=== PATIENT | male | born 1945 | race Caucasian/White ===

== ENCOUNTER 2017-11-01 05:21 | Inpatient (IN) | payer OTHER ==
[2017-10-30 12:46] LABS: ABG BASE EXCESS 3.3 mmol/L (-2.0-3.0); ABG HCO3 28.8 mmol/L (22.0-26.0); ABG OXYGEN SATURATION 91.9 % (95-98); ABG PCO2 (T) 46.9 mmHg (35.0-48.0); ABG PH (T) 7.406 (7.350-7.450); ABG PO2 (T) 62.6 mmHg (83-108); ALLEN'S TEST Positive; FMetHb 0.1 % (0.3-1.12); TOTAL HEMOGLOBIN 15.8 G/dl (14.0-18.0)
[2017-10-30 13:53] LABS: CLARITY,URINE Clear (Clear); COLOR,URINE Yellow (Yellow); GLUCOSE, URINE Negative (Neg); KETONES,URINE Negative (Neg); LEUKOCYTE ESTERASE ,URINE Negative (Neg); NITRITES, URINE Negative (Neg); OCCULT BLOOD,URINE Negative (Neg); PROTEIN,URINE Negative (Neg)
[2017-10-30 13:55] LABS: UA COLLECTION TYPE NON-SPECIFIED
[2017-10-30 15:18] LABS: BASOPHILS % (AUTO) 0.7 % (0-1); EOSINOPHILS # (AUTO) 0.1 X10'3 (0-0.9); EOSINOPHILS % (AUTO) 2.1 % (0-6); LYMPHOCYTES # (AUTO) 1.9 X10'3 (1.1-4.8); LYMPHOCYTES % (AUTO) 27.1 % (21-51); MEAN CORPUSCULAR HEMOGLOBIN 32.2 PG (27.0-31.0); MEAN CORPUSCULAR HGB CONC 34.2 % (33.0-36.5); MEAN CORPUSCULAR VOLUME 94.1 FL (78-98); MEAN PLATELET VOLUME 8.3 FL (7.4-10.4); MONOCYTES # (AUTO) 0.5 X10'3 (0-0.9); MONOCYTES % (AUTO) 7.8 % (2-12); NEUTROPHILS # (AUTO) 4.5 X10'3 (1.8-7.7); NEUTROPHILS % (AUTO) 62.3 % (42-75); PRE OP HEMATOCRIT 43.5 % (42.0-52.0); PRE OP HEMOGLOBIN 14.9 g/dL (14.0-17.9); PRE OP PLATELET COUNT 235 X10'3 (140-440); RED BLOOD COUNT 4.63 X10'6 (4.70-6.10); RED CELL DISTRIBUTION WIDTH 13.5 % (11.5-14.5)
[2017-10-30 15:21] LABS: PRE OP INR 1.1 INR; PRE OP PROTIME 11.2 SECONDS (9.0-12.0)
[2017-10-30 15:40] LABS: ALBUMIN 3.9 G/DL (3.4-5.0); ALBUMIN/GLOBULIN RATIO 1.4 (1.1-1.5); ALKALINE PHOSPHATASE 68 IU/L (46-116); BLOOD UREA NITROGEN 17 MG/DL (7-18); CALCIUM 9.1 MG/DL (8.5-10.1); CHLORIDE 104 MMOL/L (99-107); CREATININE 0.63 MG/DL (0.60-1.10); PRE OP ALT 32 U/L (30-65); PRE OP ANION GAP 7 (8-16); PRE OP AST 25 U/L (10-37); PRE OP BILIRUB, TOTAL 0.4 MG/DL (0.0-1.0); PRE OP GLUCOSE 74 MG/DL (70-104); PRE OP POTASSIUM 4.2 MMOL/L (3.4-5.1); PRE OP SODIUM 141 MMOL/L (135-145); TOTAL CARBON DIOXIDE 29.9 MMOL/L (24-32); TOTAL PROTEIN 6.7 G/DL (6.4-8.2); eGFR > 90 ML/MIN
[2017-10-30 15:57] LABS: HEMOGLOBIN A1C 5.8 % (4.5-6.2)
[2017-11-01] VITALS (18 sets, daily range): BP systolic 113–170; BP diastolic 50–86
[~2017-11-01] VITALS: Ht 182.9 cm; Wt 57.3 kg
[~2017-11-01 05:21] MED LIST: ASPI81TA52 PO; ATEN-169 PO; DOCU-261 PO; HYDR-565 PO; MULT-1085 PO; OMEG1CAP PO; OMEP40CA37 PO; ROSU20TA PO; TIOT4MIS3 PO; albuterol 2.5 MG/3 ML nebule NEB ONE; dextrose 50%-water 50ml dispensing syringe IV PRN; insulin Lispro (HumaLOG) vial - multi-dose SQ PRN; ringers solution, lacted 1,000 ML IV SCH
[2017-11-01] MEDS ORDERED: ceFAZolin inj. 2,000 MG in dextrose 5%-water 100 ML IV ONE (05:30)
[2017-11-01] MEDS ORDERED: VANCOMYCIN INJ 1000 MG in NORMAL SALINE 250ml IV.SOLN IV ONE (05:30)
[2017-11-01] MEDS ORDERED: DOCUMENT DATE & TIME OF BETA-BLOCKER PO ONE (05:30)
[2017-11-01] MEDS ORDERED: metoprolol tartrate 12.5mg (1/2 tablet) PO ONE (05:30)
[2017-11-01] MEDS ORDERED: famotidine 20mg tablet PO ONE (05:30)
[2017-11-01] MEDS ORDERED: albuterol 2.5 MG/3 ML nebule NEB ONE (05:30)
[2017-11-01] MEDS ORDERED: LIDOcaine 1% (10mg/ml) 2ml vial ONE (06:16)
[2017-11-01] MEDS ORDERED: heparin 10,000 units/1 ML INJ IR ONE (06:30)
[2017-11-01] MEDS ORDERED: LORazepam 2 mg/ml vial IV ONE (06:35)
[2017-11-01] MEDS ORDERED: ceFAZolin 2gm in dextrose, iso 100 ML IV ONE (06:35)
[2017-11-01] MEDS: mupirocin 2% ointment 22GM NS SCH ×3 (06:47→20:12)
[2017-11-01] MEDS: insulin regular, human inj. 100 UNITS in normal saline 100ml IV IV SCH ×6 (06:48→15:23)
[2017-11-01] MEDS ORDERED: MIDAZolam 1mg/ml 10ml vial ONE (07:36)
[2017-11-01] MEDS ORDERED: SUFENTANIL CITRATE 50 MCG/ML 2ml ampule IV ONE (07:37)
[2017-11-01] MEDS ORDERED: propofol inj 20 ML IV ONE (07:40)
[2017-11-01] MEDS ORDERED: protamine sulf. 10mg/ml inj. IV ONE (07:41)
[2017-11-01] MEDS ORDERED: sevoflurane 250ml liquid IH ONE (07:41)
[2017-11-01] MEDS ORDERED: DOPamine/D5W 400mg/250ml bag IV ONE (07:41)
[2017-11-01] MEDS ORDERED: heparin 10,000 units/1 ML INJ ONE ×2 (07:41→10:00)
[2017-11-01] MEDS ORDERED: albumin (Human) 5% 250 ML IV solution IV ONE (07:41)
[2017-11-01 08:31] LABS: ABG BASE EXCESS 1.9 mmol/L (-2.0-3.0); ABG HCO3 28.4 mmol/L (22.0-26.0); ABG OXYGEN SATURATION 99.4 % (95-98); ABG PCO2 52.1 mmHg (35.0-45.0); ABG PH 7.354 (7.350-7.450); ABG PO2 400.7 mmHg (60.0-100.0); CL (ABG) 105 mmol/L (99-107); FCOHb 2.7 % (0.5-1.5); FMetHb 0.5 % (0.3-1.12); FO2Hb 96.2 % (94-100); GLUCOSE (ABG) 125 mg/dl (70-105); IONIZED CA (ABG) 1.18 mmol/L (1.03-1.32); K (ABG) 4.1 mmol/L (3.3-5.1); NA (ABG) 136 mmol/L (135-145); TOTAL HEMOGLOBIN 13.7 G/dl (14.0-18.0)
[2017-11-01] MEDS ORDERED: tranexamic acid inj. 1,000 MG in normal saline 100ml IV soln 90 ML IV ONE (08:35)
[2017-11-01 09:25] LABS: ABG BASE EXCESS 2.9 mmol/L (-2.0-3.0); ABG HCO3 28.3 mmol/L (22.0-26.0); ABG OXYGEN SATURATION 98.9 % (95-98); ABG PCO2 47.1 mmHg (35.0-45.0); ABG PH 7.397 (7.350-7.450); ABG PO2 358.8 mmHg (60.0-100.0); CL (ABG) 105 mmol/L (99-107); FCOHb 1.8 % (0.5-1.5); FMetHb 0.7 % (0.3-1.12); FO2Hb 96.4 % (94-100); GLUCOSE (ABG) 99 mg/dl (70-105); IONIZED CA (ABG) 1.04 mmol/L (1.03-1.32); K (ABG) 5.4 mmol/L (3.3-5.1); NA (ABG) 136 mmol/L (135-145); TOTAL HEMOGLOBIN 11.3 G/dl (14.0-18.0)
[2017-11-01 09:40] LABS: ABG BASE EXCESS VENOUS 3.9 mmol/L; ABG HCO3 VENOUS 29.1 mmol/L; ABG PCO2 VENOUS 46.4 mmHg; ABG PO2 VENOUS 47.8 mmHg; CL (ABG) 105 mmol/L (99-107); FCOHb VENOUS 2.3 %; FHHb VENOUS 12.6 %; FMetHb VENOUS 0.8 %; FO2Hb VENOUS 84.3 %; GLUCOSE (ABG) 97 mg/dl (70-105); IONIZED CA (ABG) 1.06 mmol/L (1.03-1.32); K (ABG) 5.1 mmol/L (3.3-5.1); NA (ABG) 136 mmol/L (135-145); TOTAL HEMOGLOBIN 11.3 G/dl (14.0-18.0)
[2017-11-01] MEDS ORDERED: potassium Cl 2 mEq/ml inj IV ONE (10:00)
[2017-11-01] MEDS ORDERED: LIDOcaine 2% (20 mg/ml) 5ml cardiac syringe ONE (10:00)
[2017-11-01] MEDS ORDERED: phenylephrine 10mg/ml inj IV ONE (10:00)
[2017-11-01] MEDS ORDERED: calcium chloride 100 MG/1 ML inj IV ONE (10:00)
[2017-11-01] MEDS ORDERED: sodium bicarbonate (8.4%) 1 mEq/ml syringe ONE (10:00)
[2017-11-01] MEDS ORDERED: MAGNESIUM SULFATE 4 MEQ/ML (1gm/2ml) injection ONE (10:00)
[2017-11-01] MEDS ORDERED: methylPREDNISolone sod. succ. 500mg inj ONE (10:00)
[2017-11-01] MEDS ORDERED: heparin 1,000 units/ml 10ml inj ONE (10:00)
[2017-11-01] MEDS ORDERED: albumin (human) 25% 100 ML IV solution IV ONE (10:00)
[2017-11-01 10:05] LABS: ABG OXYGEN SATURATION 98.8 % (95-98); ABG PCO2 35.4 mmHg (35.0-45.0); ABG PH 7.516 (7.350-7.450); ABG PO2 344.5 mmHg (60.0-100.0); CL (ABG) 106 mmol/L (99-107); FCOHb 1.7 % (0.5-1.5); FMetHb 0.8 % (0.3-1.12); FO2Hb 96.3 % (94-100); GLUCOSE (ABG) 82 mg/dl (70-105); IONIZED CA (ABG) 1.51 mmol/L (1.03-1.32); K (ABG) 4.9 mmol/L (3.3-5.1); NA (ABG) 135 mmol/L (135-145); TOTAL HEMOGLOBIN 10.8 G/dl (14.0-18.0)
[2017-11-01 10:25] LABS: ABG BASE EXCESS VENOUS 3.4 mmol/L; ABG PCO2 VENOUS 48.3 mmHg; ABG PO2 VENOUS 41.9 mmHg; CL (ABG) 105 mmol/L (99-107); FCOHb VENOUS 2.1 %; FHHb VENOUS 17.7 %; FMetHb VENOUS 0.7 %; FO2Hb VENOUS 79.5 %; GLUCOSE (ABG) 91 mg/dl (70-105); IONIZED CA (ABG) 1.24 mmol/L (1.03-1.32); K (ABG) 4.6 mmol/L (3.3-5.1); NA (ABG) 138 mmol/L (135-145); TOTAL HEMOGLOBIN 11.4 G/dl (14.0-18.0)
[2017-11-01] MEDS: ipratropium/albuterol 3ml nebule IH SCH ×3 (11:00→23:27)
[2017-11-01] MEDS ORDERED: sodium chloride 0.45% 1,000 ML IV SCH (11:07)
[2017-11-01] MEDS ORDERED: niCARDipine/sod cl 20mg/200ml 200 ML IV PRN (11:07)
[2017-11-01] MEDS ORDERED: DOPamine 400mg/D5W 250ml 250 ML IV PRN (11:07)
[2017-11-01] MEDS ORDERED: nitroGLYCERIN-Tridil 50MG/D5W 250 ML IV PRN (11:07)
[2017-11-01] MEDS ORDERED: metoclopramide 5 mg/ml inj IV PRN (11:10)
[2017-11-01] MEDS ORDERED: magnesium 4gm in 100ml NS 100 ML IV PRN (11:10)
[2017-11-01] MEDS ORDERED: sodium phosphate inj. 30 MMOL in dextrose 5%-water 250 ML IV PRN (11:10)
[2017-11-01] MEDS ORDERED: acetaminophen 325mg tablet PO PRN (11:10)
[2017-11-01] MEDS ORDERED: normal saline 250ml IV soln 250 ML IV PRN (11:10)
[2017-11-01] MEDS ORDERED: dextrose 50%-water 50ml dispensing syringe IV PRN (11:10)
[2017-11-01] MEDS ORDERED: ondansetron/PF 4mg/2ml inj IV PRN (11:10)
[2017-11-01] MEDS ORDERED: magnesium hydroxide 30ml (MOM) UD suspension PO PRN (11:10)
[2017-11-01] MEDS ORDERED: HYDROcodone/acetaminophen 10/325mg tab PO PRN (11:10)
[2017-11-01] MEDS ORDERED: Neutra Phos packet PO PRN (11:10)
[2017-11-01] MEDS ORDERED: albumin (Human) 5% 250ml 250 ML IV PRN (11:10)
[2017-11-01] MEDS ORDERED: potassium Cl 20mEq/100mL bag 100 ML IV PRN ×2 (11:10)
[2017-11-01] MEDS ORDERED: sodium phosphate inj. 15 MMOL in dextrose 5%-water 150 ML IV PRN (11:10)
[2017-11-01] MEDS: insulin regular, human inj. 100 UNITS in normal saline 100ml IV soln 100 ML IV SCH ×2 (11:10)
[2017-11-01] MEDS ORDERED: rocuronium 10mg/ml inj IV ONE ×3 (11:11)
[2017-11-01 11:26] LABS: ACTIVATED CLOTTING TIME 147 SEC (101-148)
[2017-11-01 11:26] LABS: ACT @ 1.70 U 283 SEC (193-297); ACT @ 2.84 U 458 SEC (260-420); BASELINE ACT 145 SEC (101-148); PATIENT WEIGHT 64.0k KG
[2017-11-01 11:30] LABS: ABG BASE EXCESS 1.6 mmol/L (-2.0-3.0); ABG HCO3 26.7 mmol/L (22.0-26.0); ABG OXYGEN SATURATION 99.3 % (95-98); ABG PCO2 (T) 41.5 mmHg (35.0-48.0); ABG PH (T) 7.422 (7.350-7.450); ABG PO2 (T) 314.4 mmHg (83-108); FCOHb 1.9 % (0.5-1.5); FLOW 40 L/min; FMetHb 0.3 % (0.3-1.12); FO2Hb 97.1 % (94-100); MINUTE VOLUME 8 L/min; PATIENT TEMPERATURE 35.8; PEEP 5 cm H2O; RESPIRATORY RATE 14 b/min; RESPIRATORY RATE (OBSERVED) 14 b/min; TIDAL VOLUME 500 mL; TOTAL HEMOGLOBIN 13.5 G/dl (14.0-18.0)
[2017-11-01 11:47] LABS: BASOPHILS % (AUTO) 0.2 % (0-1); EOSINOPHILS # (AUTO) 0.3 X10'3 (0-0.9); EOSINOPHILS % (AUTO) 2.6 % (0-6); HEMATOCRIT 38.4 % (42.0-52.0); HEMOGLOBIN 12.7 g/dl (14.0-17.9); LYMPHOCYTES # (AUTO) 0.8 X10'3 (1.1-4.8); LYMPHOCYTES % (AUTO) 6.7 % (21-51); MEAN CORPUSCULAR HEMOGLOBIN 31.9 PG (27.0-31.0); MEAN CORPUSCULAR HGB CONC 33.1 % (33.0-36.5); MEAN CORPUSCULAR VOLUME 96.3 FL (78-98); MEAN PLATELET VOLUME 7.6 FL (7.4-10.4); MONOCYTES # (AUTO) 0.4 X10'3 (0-0.9); NEUTROPHILS # (AUTO) 10.2 X10'3 (1.8-7.7); NEUTROPHILS % (AUTO) 87.5 % (42-75); PLATELET COUNT 142 X10'3 (140-440); RED BLOOD COUNT 3.98 X10'6 (4.70-6.10); RED CELL DISTRIBUTION WIDTH 14.6 % (11.5-14.5); WHITE BLOOD COUNT 11.7 X10'3 (4.5-11.0)
[2017-11-01 11:58] LABS: INR 1.3 INR; PARTIAL THROMBOPLASTIN TIME 32 SECONDS (22-32); PROTHROMBIN TIME 13.1 SECONDS (9.0-12.0)
[2017-11-01 12:04] LABS: ALANINE AMINOTRANSFERASE 17 U/L (12-78); ALBUMIN 3.2 G/DL (3.4-5.0); ALKALINE PHOSPHATASE 45 IU/L (46-116); ANION GAP 4 (8-16); ASPARTATE AMINO TRANSFERASE 26 U/L (10-37); BILIRUBIN,TOTAL 0.5 MG/DL (0.1-1.0); BLOOD UREA NITROGEN 11 MG/DL (7-18); BUN/CREATININE RATIO 18.3 (5.4-32.0); CALCIUM 9.8 MG/DL (8.5-10.1); CHLORIDE 110 MMOL/L (99-107); GLUCOSE 110 MG/DL (70-104); MAGNESIUM 2.2 MG/DL (1.5-2.4); PHOSPHORUS 2.5 MG/DL (2.3-4.5); POTASSIUM 4.3 MMOL/L (3.5-5.1); SODIUM 142 MMOL/L (135-145); TOTAL CARBON DIOXIDE 28.1 MMOL/L (24-32); TOTAL PROTEIN 4.8 G/DL (6.4-8.2); eGFR > 90 ML/MIN
[2017-11-01] MEDS: insulin Lispro (HumaLOG) vial - multi-dose SQ SCH ×2 (12:32→18:00)
[2017-11-01] MEDS: magnesium 2GM in 50ml NS 50 ML IV PRN (12:32)
[2017-11-01] MEDS: potassium Cl 20mEq/100mL bag 100 ML IV PRN ×3 (13:57→22:04)
[2017-11-01] MEDS: ketorolac tromethamine 15mg/ml inj. IV SCH ×2 (13:57→20:09)
[2017-11-01] MEDS: cefazolin 1gm/NS 100mL 100 ML IV SCH (15:48)
[2017-11-01 16:26] LABS: ABG BASE EXCESS -1.2 mmol/L (-2.0-3.0); ABG HCO3 23.4 mmol/L (22.0-26.0); ABG OXYGEN SATURATION 94.6 % (95-98); ABG PCO2 (T) 38.9 mmHg (35.0-48.0); ABG PH (T) 7.396 (7.350-7.450); ABG PO2 (T) 71.1 mmHg (83-108); FCOHb 1.4 % (0.5-1.5); FLOW 40 L/min; FMetHb 0.2 % (0.3-1.12); FO2Hb 93.1 % (94-100); MINUTE VOLUME 8 L/min; PATIENT TEMPERATURE 36.9; PEEP 5 cm H2O; RESPIRATORY RATE (OBSERVED) 14 b/min; TOTAL HEMOGLOBIN 13.2 G/dl (14.0-18.0)
[2017-11-01 17:34] LABS: BASOPHILS % (AUTO) 0 % (0-1); EOSINOPHILS # (AUTO) 0.2 X10'3 (0-0.9); EOSINOPHILS % (AUTO) 1.5 % (0-6); HEMATOCRIT 38.4 % (42.0-52.0); HEMOGLOBIN 12.8 g/dl (14.0-17.9); LYMPHOCYTES # (AUTO) 0.4 X10'3 (1.1-4.8); MEAN CORPUSCULAR HEMOGLOBIN 31.9 PG (27.0-31.0); MEAN CORPUSCULAR HGB CONC 33.4 % (33.0-36.5); MEAN CORPUSCULAR VOLUME 95.3 FL (78-98); MEAN PLATELET VOLUME 7.5 FL (7.4-10.4); MONOCYTES # (AUTO) 0.7 X10'3 (0-0.9); MONOCYTES % (AUTO) 4.7 % (2-12); NEUTROPHILS # (AUTO) 13.1 X10'3 (1.8-7.7); NEUTROPHILS % (AUTO) 90.8 % (42-75); PLATELET COUNT 164 X10'3 (140-440); RED BLOOD COUNT 4.03 X10'6 (4.70-6.10); RED CELL DISTRIBUTION WIDTH 14.6 % (11.5-14.5); WHITE BLOOD COUNT 14.5 X10'3 (4.5-11.0)
[2017-11-01 17:42] LABS: ALBUMIN 3.7 G/DL (3.4-5.0); ANION GAP 6 (8-16); BLOOD UREA NITROGEN 11 MG/DL (7-18); BUN/CREATININE RATIO 15.9 (5.4-32.0); CALCIUM 8.7 MG/DL (8.5-10.1); CHLORIDE 107 MMOL/L (99-107); CREATININE 0.69 MG/DL (0.60-1.10); GLUCOSE 148 MG/DL (70-104); POTASSIUM 4.2 MMOL/L (3.5-5.1); SODIUM 142 MMOL/L (135-145); TOTAL CARBON DIOXIDE 29.2 MMOL/L (24-32); eGFR > 90 ML/MIN
[2017-11-01 18:54] LABS: MAGNESIUM 2.2 MG/DL (1.5-2.4)
[2017-11-01] MEDS: HYDROcodone/acetaminophen 10/325mg tab PO PRN (18:56)
[2017-11-01] MEDS: docusate sod 100mg capsule PO SCH (20:09)
[2017-11-01] MEDS: vancomycin/NS 1 GM ADD-VANTAGE 250 ML IV SCH (20:09)
[2017-11-02] VITALS (24 sets, daily range): BP systolic 94–137; BP diastolic 44–74
[2017-11-02] MEDS: cefazolin 1gm/NS 100mL 100 ML IV SCH ×3 (00:21→16:27)
[2017-11-02] MEDS: ketorolac tromethamine 15mg/ml inj. IV SCH ×2 (02:21→07:24)
[2017-11-02] MEDS: ipratropium/albuterol 3ml nebule IH SCH ×2 (02:58→07:36)
[2017-11-02 03:32] LABS: BASOPHILS % (AUTO) 0 % (0-1); EOSINOPHILS # (AUTO) 0.2 X10'3 (0-0.9); EOSINOPHILS % (AUTO) 1.5 % (0-6); HEMATOCRIT 35.6 % (42.0-52.0); HEMOGLOBIN 11.7 g/dl (14.0-17.9); LYMPHOCYTES # (AUTO) 0.6 X10'3 (1.1-4.8); LYMPHOCYTES % (AUTO) 4.5 % (21-51); MEAN CORPUSCULAR HEMOGLOBIN 31.6 PG (27.0-31.0); MEAN CORPUSCULAR HGB CONC 32.8 % (33.0-36.5); MEAN CORPUSCULAR VOLUME 96.4 FL (78-98); MEAN PLATELET VOLUME 8.5 FL (7.4-10.4); MONOCYTES # (AUTO) 1.1 X10'3 (0-0.9); MONOCYTES % (AUTO) 8.7 % (2-12); NEUTROPHILS # (AUTO) 10.6 X10'3 (1.8-7.7); NEUTROPHILS % (AUTO) 85.3 % (42-75); PLATELET COUNT 145 X10'3 (140-440); RED BLOOD COUNT 3.69 X10'6 (4.70-6.10); RED CELL DISTRIBUTION WIDTH 14.6 % (11.5-14.5); WHITE BLOOD COUNT 12.4 X10'3 (4.5-11.0)
[2017-11-02 03:41] LABS: PARTIAL THROMBOPLASTIN TIME 26 SECONDS (22-32); PROTHROMBIN TIME 10.8 SECONDS (9.0-12.0)
[2017-11-02 03:53] LABS: ALANINE AMINOTRANSFERASE 21 U/L (12-78); ALBUMIN 3.4 G/DL (3.4-5.0); ALBUMIN/GLOBULIN RATIO 1.5 (1.1-1.5); ALKALINE PHOSPHATASE 45 IU/L (46-116); ANION GAP 7 (8-16); ASPARTATE AMINO TRANSFERASE 37 U/L (10-37); BILIRUBIN,TOTAL 0.5 MG/DL (0.1-1.0); BLOOD UREA NITROGEN 10 MG/DL (7-18); BUN/CREATININE RATIO 19.2 (5.4-32.0); CALCIUM 8.7 MG/DL (8.5-10.1); CHLORIDE 105 MMOL/L (99-107); CREATININE 0.52 MG/DL (0.60-1.10); GLUCOSE 121 MG/DL (70-104); MAGNESIUM 1.9 MG/DL (1.5-2.4); PHOSPHORUS 3.6 MG/DL (2.3-4.5); POTASSIUM 4.8 MMOL/L (3.5-5.1); SODIUM 139 MMOL/L (135-145); TOTAL CARBON DIOXIDE 26.8 MMOL/L (24-32); TOTAL PROTEIN 5.7 G/DL (6.4-8.2); eGFR > 90 ML/MIN
[2017-11-02] MEDS: HYDROcodone/acetaminophen 10/325mg tab PO PRN ×6 (04:57→21:17)
[2017-11-02] MEDS: magnesium 2GM in 50ml NS 50 ML IV PRN (07:22)
[2017-11-02] MEDS: vancomycin/NS 1 GM ADD-VANTAGE 250 ML IV SCH ×2 (07:23→21:16)
[2017-11-02] MEDS: docusate sod 100mg capsule PO SCH ×2 (07:25→21:17)
[2017-11-02] MEDS: pantoprazole 40mg Tablet.DR PO SCH (07:25)
[2017-11-02] MEDS: multivitamins, therapeutics tablet PO SCH (07:26)
[2017-11-02] MEDS: atorvastatin 10mg tablet PO SCH (07:27)
[2017-11-02] MEDS: aspirin 325mg tablet, delayed-release (Ecotrin) PO SCH (07:27)
[2017-11-02] MEDS: metoprolol tartrate 12.5mg (1/2 tablet) PO SCH ×2 (07:27→21:16)
[2017-11-02] MEDS: mupirocin 2% ointment 22GM NS SCH ×4 (07:28→21:16)
[2017-11-02] MEDS ORDERED: non-formulary drug (Tiotropium Br/Olodaterol HCl (Stiolto Respimat Inhal Spray) 2 PUFFS) PO SCH (08:00)
[2017-11-02] MEDS: insulin Lispro (HumaLOG) vial - multi-dose SQ SCH ×2 (10:57→13:00)
[2017-11-02] MEDS: insulin regular, human inj. 100 UNITS in normal saline 100ml IV soln 100 ML IV SCH ×2 (11:10)
[2017-11-02] MEDS ORDERED: ipratropium/albuterol 3ml nebule IH PRN (11:25)
[2017-11-02] MEDS ORDERED: dextrose 50%-water 50ml dispensing syringe IV PRN ×2 (15:30)
[2017-11-02] MEDS ORDERED: dextrose ORAL solution 15 GM/59 ML bottle PO PRN ×2 (15:30)
[2017-11-02] MEDS ORDERED: insulin Lispro (HumaLOG) vial - multi-dose SQ SCH (15:30)
[2017-11-02] MEDS ORDERED: MESSAGE TO PHARMACY PO ONE (15:30)
[2017-11-02] MEDS ORDERED: glucagon, human recombinant 1mg kit SUBCUT PRN (15:30)
[2017-11-02] MEDS: Insulin Detemir pen SQ SCH (21:00)
[2017-11-03] VITALS (20 sets, daily range): BP systolic 80–139; BP diastolic 55–81
[2017-11-03] MEDS: cefazolin 1gm/NS 100mL 100 ML IV SCH (00:25)
[2017-11-03] MEDS: HYDROcodone/acetaminophen 10/325mg tab PO PRN ×6 (01:08→23:28)
[2017-11-03 04:00] LABS: BASOPHILS % (AUTO) 0.1 % (0-1); EOSINOPHILS # (AUTO) 0.2 X10'3 (0-0.9); EOSINOPHILS % (AUTO) 1.6 % (0-6); HEMOGLOBIN 11.1 g/dl (14.0-17.9); LYMPHOCYTES # (AUTO) 0.9 X10'3 (1.1-4.8); LYMPHOCYTES % (AUTO) 7.1 % (21-51); MEAN CORPUSCULAR HEMOGLOBIN 31.7 PG (27.0-31.0); MEAN CORPUSCULAR HGB CONC 32.8 % (33.0-36.5); MEAN CORPUSCULAR VOLUME 96.8 FL (78-98); MEAN PLATELET VOLUME 8.4 FL (7.4-10.4); MONOCYTES # (AUTO) 1.1 X10'3 (0-0.9); MONOCYTES % (AUTO) 9.1 % (2-12); NEUTROPHILS # (AUTO) 10.3 X10'3 (1.8-7.7); NEUTROPHILS % (AUTO) 82.1 % (42-75); PLATELET COUNT 142 X10'3 (140-440); RED BLOOD COUNT 3.51 X10'6 (4.70-6.10); RED CELL DISTRIBUTION WIDTH 14.6 % (11.5-14.5); WHITE BLOOD COUNT 12.6 X10'3 (4.5-11.0)
[2017-11-03 04:14] LABS: ALBUMIN 3.3 G/DL (3.4-5.0); ANION GAP 1 (8-16); BLOOD UREA NITROGEN 14 MG/DL (7-18); BUN/CREATININE RATIO 20.9 (5.4-32.0); CALCIUM 8.7 MG/DL (8.5-10.1); CHLORIDE 104 MMOL/L (99-107); CREATININE 0.67 MG/DL (0.60-1.10); GLUCOSE 136 MG/DL (70-104); MAGNESIUM 2.1 MG/DL (1.5-2.4); PHOSPHORUS 2.7 MG/DL (2.3-4.5); POTASSIUM 5.1 MMOL/L (3.5-5.1); SODIUM 137 MMOL/L (135-145); TOTAL CARBON DIOXIDE 32.5 MMOL/L (24-32); eGFR > 90 ML/MIN
[2017-11-03] MEDS: magnesium 2GM in 50ml NS 50 ML IV PRN (04:34)
[2017-11-03] MEDS ORDERED: magnesium 2GM in 50ml NS 50 ML IV PRN (07:05)
[2017-11-03] MEDS ORDERED: potassium Cl 40MEQ/NS 500ml 500 ML IV PRN ×2 (07:05)
[2017-11-03] MEDS ORDERED: potassium Cl 20 mEq SR tablet PO PRN ×2 (07:05)
[2017-11-03] MEDS ORDERED: magnesium 4gm in 100ml NS 100 ML IV PRN (07:05)
[2017-11-03] MEDS ORDERED: magnesium Cl slow-release 64mg tablet PO PRN (07:05)
[2017-11-03] MEDS: potassium Cl 20 mEq SR tablet PO SCH ×2 (08:00→19:54)
[2017-11-03] MEDS: K and/or MAG REPLACEMENT MC SCH (08:00)
[2017-11-03] MEDS: metoprolol tartrate 12.5mg (1/2 tablet) PO SCH ×2 (08:15→19:54)
[2017-11-03] MEDS: aspirin 325mg tablet, delayed-release (Ecotrin) PO SCH (08:16)
[2017-11-03] MEDS: pantoprazole 40mg Tablet.DR PO SCH (08:16)
[2017-11-03] MEDS: mupirocin 2% ointment 22GM NS SCH ×2 (08:16→20:00)
[2017-11-03] MEDS: docusate sod 100mg capsule PO SCH ×2 (08:16→19:54)
[2017-11-03] MEDS: magnesium Cl slow-release 64mg tablet PO SCH ×2 (08:16→19:55)
[2017-11-03] MEDS: multivitamins, therapeutics tablet PO SCH (08:16)
[2017-11-03] MEDS: atorvastatin 10mg tablet PO SCH (08:16)
[2017-11-03] MEDS: Insulin Detemir pen SQ SCH (21:00)
[2017-11-03] MEDS ORDERED: amiodarone 150mg/dext, iso-os 100 ML IV ONE (22:10)
[2017-11-03] MEDS: amiodarone/D5 450MG/250ML BAG 250 ML IV SCH (22:52)
[2017-11-04] VITALS (17 sets, daily range): BP systolic 83–112; BP diastolic 54–72
[2017-11-04] MEDS: HYDROcodone/acetaminophen 10/325mg tab PO PRN ×5 (03:35→20:22)
[2017-11-04] MEDS: amiodarone/D5 450MG/250ML BAG 250 ML IV SCH ×4 (04:59→21:16)
[2017-11-04 05:36] LABS: BASOPHILS % (AUTO) 0.3 % (0-1); EOSINOPHILS # (AUTO) 0.4 X10'3 (0-0.9); EOSINOPHILS % (AUTO) 3.4 % (0-6); HEMOGLOBIN 11.5 g/dl (14.0-17.9); LYMPHOCYTES # (AUTO) 1.9 X10'3 (1.1-4.8); LYMPHOCYTES % (AUTO) 16.9 % (21-51); MEAN CORPUSCULAR HEMOGLOBIN 31.6 PG (27.0-31.0); MEAN CORPUSCULAR HGB CONC 32.8 % (33.0-36.5); MEAN CORPUSCULAR VOLUME 96.3 FL (78-98); MEAN PLATELET VOLUME 8.6 FL (7.4-10.4); MONOCYTES # (AUTO) 1.2 X10'3 (0-0.9); MONOCYTES % (AUTO) 10.8 % (2-12); NEUTROPHILS # (AUTO) 7.8 X10'3 (1.8-7.7); NEUTROPHILS % (AUTO) 68.6 % (42-75); PLATELET COUNT 161 X10'3 (140-440); RED BLOOD COUNT 3.63 X10'6 (4.70-6.10); RED CELL DISTRIBUTION WIDTH 14.6 % (11.5-14.5); WHITE BLOOD COUNT 11.3 X10'3 (4.5-11.0)
[2017-11-04 05:49] LABS: ALBUMIN 3.2 G/DL (3.4-5.0); ANION GAP 5 (8-16); BLOOD UREA NITROGEN 18 MG/DL (7-18); BUN/CREATININE RATIO 22.8 (5.4-32.0); CHLORIDE 101 MMOL/L (99-107); CREATININE 0.79 MG/DL (0.60-1.10); GLUCOSE 125 MG/DL (70-104); POTASSIUM 4.8 MMOL/L (3.5-5.1); SODIUM 139 MMOL/L (135-145); TOTAL CARBON DIOXIDE 33.5 MMOL/L (24-32); eGFR > 90 ML/MIN
[2017-11-04] MEDS: LACTOSE-FREE FOOD 237ML (BOOST) PO SCH ×2 (07:30→12:40)
[2017-11-04] MEDS: metoprolol tartrate 12.5mg (1/2 tablet) PO SCH ×2 (08:00→19:45)
[2017-11-04] MEDS: magnesium Cl slow-release 64mg tablet PO SCH ×2 (08:00→19:46)
[2017-11-04] MEDS: mupirocin 2% ointment 22GM NS SCH (08:00)
[2017-11-04] MEDS: K and/or MAG REPLACEMENT MC SCH (08:00)
[2017-11-04] MEDS: potassium Cl 20 mEq SR tablet PO SCH ×2 (08:00→19:46)
[2017-11-04] MEDS: aspirin 325mg tablet, delayed-release (Ecotrin) PO SCH (08:08)
[2017-11-04] MEDS: multivitamins, therapeutics tablet PO SCH (08:08)
[2017-11-04] MEDS: pantoprazole 40mg Tablet.DR PO SCH (08:08)
[2017-11-04] MEDS: atorvastatin 10mg tablet PO SCH (08:08)
[2017-11-04] MEDS: docusate sod 100mg capsule PO SCH ×2 (08:08→19:45)
[2017-11-04] MEDS ORDERED: amiodarone 150mg/dext, iso-os 100 ML IV ONE (14:30)
[2017-11-04] MEDS: Insulin Detemir pen SQ SCH (19:46)
[2017-11-05] VITALS (10 sets, daily range): BP systolic 95–136; BP diastolic 63–104
[2017-11-05] MEDS: HYDROcodone/acetaminophen 10/325mg tab PO PRN ×5 (00:23→22:39)
[2017-11-05] MEDS: amiodarone/D5 450MG/250ML BAG 250 ML IV SCH (04:27)
[2017-11-05 06:04] LABS: BASOPHILS % (AUTO) 0.4 % (0-1); EOSINOPHILS # (AUTO) 0.6 X10'3 (0-0.9); EOSINOPHILS % (AUTO) 5.3 % (0-6); HEMATOCRIT 33.8 % (42.0-52.0); HEMOGLOBIN 11.1 g/dl (14.0-17.9); LYMPHOCYTES # (AUTO) 1.5 X10'3 (1.1-4.8); LYMPHOCYTES % (AUTO) 14.5 % (21-51); MEAN CORPUSCULAR HEMOGLOBIN 31.8 PG (27.0-31.0); MEAN CORPUSCULAR VOLUME 96.4 FL (78-98); MEAN PLATELET VOLUME 8.3 FL (7.4-10.4); MONOCYTES # (AUTO) 0.8 X10'3 (0-0.9); MONOCYTES % (AUTO) 7.9 % (2-12); NEUTROPHILS # (AUTO) 7.6 X10'3 (1.8-7.7); NEUTROPHILS % (AUTO) 71.9 % (42-75); PLATELET COUNT 192 X10'3 (140-440); RED CELL DISTRIBUTION WIDTH 14.1 % (11.5-14.5); WHITE BLOOD COUNT 10.6 X10'3 (4.5-11.0)
[2017-11-05 06:20] LABS: ALBUMIN 3.2 G/DL (3.4-5.0); ANION GAP 4 (8-16); BLOOD UREA NITROGEN 19 MG/DL (7-18); BUN/CREATININE RATIO 30.2 (5.4-32.0); CALCIUM 9.4 MG/DL (8.5-10.1); CHLORIDE 102 MMOL/L (99-107); CREATININE 0.63 MG/DL (0.60-1.10); GLUCOSE 117 MG/DL (70-104); MAGNESIUM 1.6 MG/DL (1.5-2.4); POTASSIUM 4.3 MMOL/L (3.5-5.1); SODIUM 138 MMOL/L (135-145); TOTAL CARBON DIOXIDE 32.1 MMOL/L (24-32); eGFR > 90 ML/MIN
[2017-11-05] MEDS: LACTOSE-FREE FOOD 237ML (BOOST) PO SCH ×2 (07:30→13:13)
[2017-11-05] MEDS: potassium Cl 20 mEq SR tablet PO SCH ×2 (08:00→19:10)
[2017-11-05] MEDS: K and/or MAG REPLACEMENT MC SCH (08:00)
[2017-11-05] MEDS: atorvastatin 10mg tablet PO SCH (08:47)
[2017-11-05] MEDS: docusate sod 100mg capsule PO SCH ×2 (08:47→19:07)
[2017-11-05] MEDS: aspirin 325mg tablet, delayed-release (Ecotrin) PO SCH (08:48)
[2017-11-05] MEDS: multivitamins, therapeutics tablet PO SCH (08:48)
[2017-11-05] MEDS: metoprolol tartrate 12.5mg (1/2 tablet) PO SCH ×2 (08:48→19:07)
[2017-11-05] MEDS: magnesium Cl slow-release 64mg tablet PO SCH ×2 (08:48→19:07)
[2017-11-05] MEDS: pantoprazole 40mg Tablet.DR PO SCH (08:50)
[2017-11-05] MEDS ORDERED: amiodarone 200mg tablet PO SCH (10:00)
[2017-11-05] MEDS ORDERED: magnesium citrate 296ml oral solution PO ONE (10:05)
[2017-11-05] MEDS: amiodarone 200mg tablet PO SCH ×3 (11:36→19:07)
[2017-11-05] MEDS: Insulin Detemir pen SQ SCH (20:32)
[2017-11-06] MEDS: HYDROcodone/acetaminophen 10/325mg tab PO PRN ×3 (02:42→10:54)
[2017-11-06 05:26] LABS: BASOPHILS # (AUTO) 0.1 X10'3 (0-0.2); BASOPHILS % (AUTO) 0.6 % (0-1); EOSINOPHILS # (AUTO) 0.9 X10'3 (0-0.9); EOSINOPHILS % (AUTO) 8.4 % (0-6); HEMATOCRIT 36.1 % (42.0-52.0); HEMOGLOBIN 12.1 g/dl (14.0-17.9); LYMPHOCYTES # (AUTO) 1.9 X10'3 (1.1-4.8); LYMPHOCYTES % (AUTO) 18.6 % (21-51); MEAN CORPUSCULAR HEMOGLOBIN 32.1 PG (27.0-31.0); MEAN CORPUSCULAR HGB CONC 33.4 % (33.0-36.5); MEAN CORPUSCULAR VOLUME 96.1 FL (78-98); MEAN PLATELET VOLUME 7.8 FL (7.4-10.4); MONOCYTES % (AUTO) 9.9 % (2-12); NEUTROPHILS # (AUTO) 6.5 X10'3 (1.8-7.7); NEUTROPHILS % (AUTO) 62.5 % (42-75); PLATELET COUNT 245 X10'3 (140-440); RED BLOOD COUNT 3.76 X10'6 (4.70-6.10); WHITE BLOOD COUNT 10.4 X10'3 (4.5-11.0)
[2017-11-06 05:45] LABS: ALBUMIN 3.5 G/DL (3.4-5.0); ANION GAP 1 (8-16); BLOOD UREA NITROGEN 19 MG/DL (7-18); BUN/CREATININE RATIO 26.8 (5.4-32.0); CALCIUM 9.3 MG/DL (8.5-10.1); CHLORIDE 101 MMOL/L (99-107); CREATININE 0.71 MG/DL (0.60-1.10); GLUCOSE 101 MG/DL (70-104); MAGNESIUM 2.1 MG/DL (1.5-2.4); POTASSIUM 5.1 MMOL/L (3.5-5.1); SODIUM 139 MMOL/L (135-145); eGFR > 90 ML/MIN
[2017-11-06 07:00] VITALS: BP 113/67
[2017-11-06] MEDS: metoprolol tartrate 12.5mg (1/2 tablet) PO SCH (07:16)
[2017-11-06] MEDS: multivitamins, therapeutics tablet PO SCH (07:18)
[2017-11-06] MEDS: aspirin 325mg tablet, delayed-release (Ecotrin) PO SCH (07:18)
[2017-11-06] MEDS: amiodarone 200mg tablet PO SCH ×2 (07:18→13:00)
[2017-11-06] MEDS: docusate sod 100mg capsule PO SCH (07:18)
[2017-11-06] MEDS: pantoprazole 40mg Tablet.DR PO SCH (07:18)
[2017-11-06] MEDS: atorvastatin 10mg tablet PO SCH (07:18)
[2017-11-06] MEDS: LACTOSE-FREE FOOD 237ML (BOOST) PO SCH ×2 (07:30→13:00)
[2017-11-06] MEDS ORDERED: AMIO200T57 PO (07:45)
[2017-11-06] MEDS ORDERED: METO25TA6 PO (07:45)
[2017-11-06] MEDS: magnesium Cl slow-release 64mg tablet PO SCH (08:00)
[2017-11-06] MEDS: K and/or MAG REPLACEMENT MC SCH (08:00)
[2017-11-06] MEDS: potassium Cl 20 mEq SR tablet PO SCH (08:00)
[2017-11-06 11:00] VITALS: BP 125/69
== END 2017-11-06 14:15 | disposition home or self-care (01) | DRG 236 ==
LOC: PAS IN 05:21 → EDSTATUS 08:30 → CICU 2S 10:03 → PCU 3S 11-03 12:30
PROVIDERS: ADMIT Thoracic Surgery (Cardiothoracic Vascular Surgery); ATTEND Thoracic Surgery (Cardiothoracic Vascular Surgery)
PROC: 06BP4ZZ Excision of Right Saphenous Vein, Percutaneous Endoscopic Approach (ICD-10-PCS; 2017-11-01)
PROC: B24BZZ4 Ultrasonography of Heart with Aorta, Transesophageal (ICD-10-PCS; 2017-11-01)
PROC: 5A1221Z Performance of Cardiac Output, Continuous (ICD-10-PCS; 2017-11-01)
PROC: 30233M1 Transfusion of Nonautologous Plasma Cryoprecipitate into Peripheral Vein, Percutaneous Approach (ICD-10-PCS; 2017-11-01)
PROC: 02HV33Z Insertion of Infusion Device into Superior Vena Cava, Percutaneous Approach (ICD-10-PCS; 2017-11-01)
PROC: 02HQ32Z Insertion of Monitoring Device into Right Pulmonary Artery, Percutaneous Approach (ICD-10-PCS; 2017-11-01)
PROC: 4A133B3 Monitoring of Arterial Pressure, Pulmonary, Percutaneous Approach (ICD-10-PCS; 2017-11-01)
PROC: 4A1239Z Monitoring of Cardiac Output, Percutaneous Approach (ICD-10-PCS; 2017-11-01)
PROC: 021109W Bypass Coronary Artery, Two Arteries from Aorta with Autologous Venous Tissue, Open Approach (ICD-10-PCS; principal; 2017-11-01 07:41)
DX: I25.110 Atherosclerotic heart disease of native coronary artery with unstable angina pectoris (principal); I31.3 Pericardial effusion (noninflammatory); I48.91 Unspecified atrial fibrillation; I10 Essential (primary) hypertension; M19.90 Unspecified osteoarthritis, unspecified site; J44.9 Chronic obstructive pulmonary disease, unspecified; G89.29 Other chronic pain; E78.5 Hyperlipidemia, unspecified; Z96.641 Presence of right artificial hip joint; K21.9 Gastro-esophageal reflux disease without esophagitis; Z85.46 Personal history of malignant neoplasm of prostate; Z87.891 Personal history of nicotine dependence; Z82.49 Family history of ischemic heart disease and other diseases of the circulatory system; Z81.8 Family history of other mental and behavioral disorders
CPT/HCPCS: 0232T; 93312; 93325; 36415; 36600; 71045; 71046; 80048; 80053; 81003; 82330; 82435; 82803; 82947; 82948; 83036; 83735; 84100; 84132; 84295; 85018; 85025; 85347; 85384; 85610; 85730; 86885; 86900; 86901; 87070; 93005; 93880; 93971; 94002; 94060; 94640; 94668; 94760; 97110; 97116; 97161; 97530; A6213; A6222; A6251; A6255; A6257; A6258; A6402; A6449; A7000; A7048; C1751; J0282; J0690; J1265; J1644; J1815; J1885; J2001; J2060; J2150; J2250; J2270; J2370; J2704; J2720; J2930; J3370; J3475; J3480; J3490; J7030; J7060; J7120; P9012; P9045; P9047

== ENCOUNTER 2017-11-09 07:38 | Inpatient (IN) | payer OTHER, MEDICARE ==
[~2017-11-09] VITALS: Ht 6038.7 cm; Wt 64.5 kg
[~2017-11-09 07:38] MED LIST changes: +AMIO200T57 PO; -ATEN-169 PO; +METO25TA6 PO; -albuterol 2.5 MG/3 ML nebule NEB ONE; -dextrose 50%-water 50ml dispensing syringe IV PRN; -insulin Lispro (HumaLOG) vial - multi-dose SQ PRN; -ringers solution, lacted 1,000 ML IV SCH
[2017-11-09 08:31] LABS: ALANINE AMINOTRANSFERASE 27 U/L (12-78); ALBUMIN 3.5 G/DL (3.4-5.0); ALBUMIN/GLOBULIN RATIO 1.2 (1.1-1.5); ALKALINE PHOSPHATASE 79 IU/L (46-116); ANION GAP 4 (8-16); ASPARTATE AMINO TRANSFERASE 20 U/L (10-37); BILIRUBIN,TOTAL 0.5 MG/DL (0.1-1.0); BLOOD UREA NITROGEN 19 MG/DL (7-18); BUN/CREATININE RATIO 21.1 (5.4-32.0); CALCIUM 8.7 MG/DL (8.5-10.1); CHLORIDE 103 MMOL/L (99-107); GLUCOSE 171 MG/DL (70-104); POTASSIUM 4.5 MMOL/L (3.5-5.1); SODIUM 137 MMOL/L (135-145); TOTAL CARBON DIOXIDE 30.4 MMOL/L (24-32); TOTAL PROTEIN 6.4 G/DL (6.4-8.2); eGFR 83 ML/MIN
[2017-11-09 08:33] LABS: BASOPHILS # (AUTO) 0.1 X10'3 (0-0.2); BASOPHILS % (AUTO) 0.5 % (0-1); EOSINOPHILS # (AUTO) 0.3 X10'3 (0-0.9); EOSINOPHILS % (AUTO) 2.9 % (0-6); HEMATOCRIT 35.1 % (42.0-52.0); HEMOGLOBIN 11.5 g/dl (14.0-17.9); LYMPHOCYTES # (AUTO) 0.8 X10'3 (1.1-4.8); LYMPHOCYTES % (AUTO) 7.3 % (21-51); MEAN CORPUSCULAR HGB CONC 32.8 % (33.0-36.5); MEAN CORPUSCULAR VOLUME 97.6 FL (78-98); MEAN PLATELET VOLUME 6.9 FL (7.4-10.4); MONOCYTES # (AUTO) 1.2 X10'3 (0-0.9); MONOCYTES % (AUTO) 10.6 % (2-12); NEUTROPHILS # (AUTO) 8.8 X10'3 (1.8-7.7); NEUTROPHILS % (AUTO) 78.7 % (42-75); PLATELET COUNT 423 X10'3 (140-440); RED CELL DISTRIBUTION WIDTH 14.4 % (11.5-14.5); WHITE BLOOD COUNT 11.1 X10'3 (4.5-11.0)
[2017-11-09 08:43] LABS: INR 1.1 INR; PARTIAL THROMBOPLASTIN TIME 25 SECONDS (22-32); PROTHROMBIN TIME 10.9 SECONDS (9.0-12.0)
[2017-11-09] MEDS ORDERED: albuterol 2.5 MG/3 ML nebule NEB ONE (09:45)
[2017-11-09] MEDS ORDERED: normal saline 1000ml 1,000 ML IV SCH (10:43)
[2017-11-09] MEDS ORDERED: ipratropium/albuterol 3ml nebule NEB PRN (10:45)
[2017-11-09] MEDS ORDERED: mag hydrox/Alum hydrox/simeth 30ml oral suspension PO PRN (10:45)
[2017-11-09] MEDS ORDERED: methylPREDNISolone sod succ 125mg/2ml vial IV ONE (10:45)
[2017-11-09] MEDS ORDERED: magnesium 4gm in 100ml NS 100 ML IV PRN (10:45)
[2017-11-09] MEDS ORDERED: acetaminophen 325mg tablet PO PRN ×2 (10:45)
[2017-11-09] MEDS ORDERED: HYDROcodone/acetaminophen 10/325mg tab PO PRN (10:45)
[2017-11-09] MEDS ORDERED: magnesium 2GM in 50ml NS 50 ML IV PRN (10:45)
[2017-11-09] MEDS ORDERED: potassium Cl 20 mEq SR tablet PO PRN ×2 (10:45)
[2017-11-09] MEDS ORDERED: potassium Cl 40MEQ/NS 500ml 500 ML IV PRN ×2 (10:45)
[2017-11-09] MEDS: K and/or MAG REPLACEMENT MC SCH (10:45)
[2017-11-09] MEDS ORDERED: ondansetron/PF 4mg/2ml inj IV PRN (10:45)
[2017-11-09] MEDS ORDERED: magnesium hydroxide 30ml (MOM) UD suspension PO PRN (10:45)
[2017-11-09] MEDS ORDERED: HYDROcodone/acetaminophen 5mg/325mg tablet PO PRN (10:45)
[2017-11-09] MEDS: ipratropium/albuterol 3ml nebule NEB SCH ×4 (12:33→23:06)
[2017-11-09] MEDS ORDERED: methylPREDNISolone sod succ 125mg/2ml vial IV SCH (14:00)
[2017-11-09] MEDS: HYDROcodone/acetaminophen 10/325mg tab PO PRN ×3 (14:40→22:36)
[2017-11-09 15:10] VITALS: BP 101/60
[2017-11-09] MEDS ORDERED: diltiazem 5mg/ml 5ml inj. IV ONE (17:10)
[2017-11-09 17:45] LABS: MAGNESIUM 2.1 MG/DL (1.5-2.4)
[2017-11-09 19:00] VITALS: BP 109/60
[2017-11-09] MEDS: amiodarone 200mg tablet PO SCH (20:31)
[2017-11-09] MEDS ORDERED: temazepam 15mg capsule PO PRN (21:00)
[2017-11-09] MEDS: magnesium Cl slow-release 64mg tablet PO PRN (21:08)
[2017-11-09 23:00] VITALS: BP 110/63
[2017-11-10] MEDS: HYDROcodone/acetaminophen 10/325mg tab PO PRN ×3 (02:50→11:34)
[2017-11-10 03:00] VITALS: BP 107/64
[2017-11-10 06:00] VITALS: BP 102/69
[2017-11-10 06:38] LABS: ALBUMIN 3.2 G/DL (3.4-5.0); ANION GAP 7 (8-16); BLOOD UREA NITROGEN 14 MG/DL (7-18); CALCIUM 8.8 MG/DL (8.5-10.1); CHLORIDE 102 MMOL/L (99-107); GLUCOSE 141 MG/DL (70-104); MAGNESIUM 1.9 MG/DL (1.5-2.4); POTASSIUM 5.1 MMOL/L (3.5-5.1); SODIUM 139 MMOL/L (135-145); TOTAL CARBON DIOXIDE 29.7 MMOL/L (24-32); eGFR > 90 ML/MIN
[2017-11-10 07:12] LABS: BASOPHILS % (AUTO) 0 % (0-1); EOSINOPHILS % (AUTO) 0.1 % (0-6); HEMATOCRIT 29.9 % (42.0-52.0); HEMOGLOBIN 10.4 g/dl (14.0-17.9); LYMPHOCYTES # (AUTO) 0.4 X10'3 (1.1-4.8); MEAN CORPUSCULAR HEMOGLOBIN 33.1 PG (27.0-31.0); MEAN CORPUSCULAR HGB CONC 34.6 % (33.0-36.5); MEAN CORPUSCULAR VOLUME 95.6 FL (78-98); MEAN PLATELET VOLUME 7.3 FL (7.4-10.4); MONOCYTES # (AUTO) 0.5 X10'3 (0-0.9); MONOCYTES % (AUTO) 5.2 % (2-12); NEUTROPHILS % (AUTO) 89.7 % (42-75); PLATELET COUNT 441 X10'3 (140-440); RED BLOOD COUNT 3.13 X10'6 (4.70-6.10); RED CELL DISTRIBUTION WIDTH 13.3 % (11.5-14.5); WHITE BLOOD COUNT 8.9 X10'3 (4.5-11.0)
[2017-11-10] MEDS: ipratropium/albuterol 3ml nebule NEB SCH ×2 (07:33→11:31)
[2017-11-10] MEDS: amiodarone 200mg tablet PO SCH (07:45)
[2017-11-10] MEDS: magnesium Cl slow-release 64mg tablet PO PRN (07:46)
[2017-11-10] MEDS: K and/or MAG REPLACEMENT MC SCH (08:00)
[2017-11-10] MEDS ORDERED: AMIO200T57 PO (10:25)
[2017-11-10] MEDS ORDERED: APIX5TAB3 PO (10:25)
[2017-11-10 11:00] VITALS: BP 131/69
== END 2017-11-10 13:50 | disposition home or self-care (01) | DRG 189 ==
LOC: ER 07:38 → ED HOLD 10:43 → EDBEDREQ 14:13 → PCU 3S 15:10
PROVIDERS: ADMIT Family Medicine; ATTEND Family Medicine
DX: J96.01 Acute respiratory failure with hypoxia (principal); I48.0 Paroxysmal atrial fibrillation; J44.9 Chronic obstructive pulmonary disease, unspecified; E78.00 Pure hypercholesterolemia, unspecified; K21.9 Gastro-esophageal reflux disease without esophagitis; G89.29 Other chronic pain; I25.10 Atherosclerotic heart disease of native coronary artery without angina pectoris; I25.2 Old myocardial infarction; Z95.1 Presence of aortocoronary bypass graft; Z90.49 Acquired absence of other specified parts of digestive tract; Z90.79 Acquired absence of other genital organ(s); Z98.49 Cataract extraction status, unspecified eye; Z79.899 Other long term (current) drug therapy; Z79.82 Long term (current) use of aspirin; Z85.038 Personal history of other malignant neoplasm of large intestine; Z85.46 Personal history of malignant neoplasm of prostate; Z87.891 Personal history of nicotine dependence
CPT/HCPCS: 36415; 71045; 80048; 80053; 83735; 83880; 85025; 85610; 85730; 87070; 93005; 94640; 94760; 97116; 97161; 99285; J2930; J7030

== ENCOUNTER 2021-07-12 13:49 | Inpatient (IN) | payer OTHER ==
[~2021-07-12] VITALS: Ht 182.9 cm; Wt 59.8 kg
[~2021-07-12 13:49] MED LIST changes: -AMIO200T57 PO; +APIX5TAB3 PO; -DOCU-261 PO; +DOCU-337 PO; +HYDR-4353 PO; -HYDR-565 PO; +LOP25T PO; -METO25TA6 PO; -OMEG1CAP PO; +OMEG1CAP61 PO; +OMEP40CA21 PO; -OMEP40CA37 PO; -ROSU20TA PO; +ROSU20TA2 PO
[2021-07-12 14:28] VITALS: BP 152/72
[2021-07-12] MEDS ORDERED: diphenhydrAMINE 25mg capsule PO PRN (14:40)
[2021-07-12] MEDS ORDERED: LORazepam 0.5 MG tablet PO PRN (14:40)
[2021-07-12] MEDS ORDERED: CLOP75TA34 PO (14:58)
[2021-07-12] MEDS ORDERED: PANT-47 PO (15:04)
[2021-07-12] MEDS ORDERED: VITE400C PO (15:04)
[2021-07-12] MEDS ORDERED: ALBU8HFA PO (15:04)
[2021-07-12] MEDS ORDERED: CHOL100046 PO (15:04)
[2021-07-12] MEDS ORDERED: ASCO500C17 PO (15:04)
[2021-07-12] MEDS ORDERED: VITAMIN B12 PO (15:04)
[2021-07-12] MEDS ORDERED: ATEN-27 PO (15:04)
[2021-07-12] MEDS ORDERED: MOME13HF3 (15:04)
[2021-07-12] MEDS ORDERED: DOPamine 400mg/D5W 250ml 250 ML IV ONE (15:56)
[2021-07-12] MEDS ORDERED: heparin 1,000unit/ml 10ml vial 10 ML ONE (15:56)
[2021-07-12] MEDS ORDERED: LIDOcaine 1% (10mg/ml)w/preservative injection 20ml MDV ONE (15:56)
[2021-07-12] MEDS ORDERED: phenylephrine 10mg/ml inj. ONE (15:56)
[2021-07-12] MEDS ORDERED: atropine 0.1mg/ml 10ml syringe ONE (15:57)
[2021-07-12] MEDS ORDERED: iohexol 350 MG/1 ML 200ml bottle ONE (15:57)
[2021-07-12] MEDS ORDERED: clopidogrel 300mg tablet ONE (17:28)
--- NOTE | 2021-07-12 17:45 | NUR ---
Patient report given, questions answered & plan of care reviewed with TYREL Lainez, pt will be going to room #3017P from the brine room laborer.
--- NOTE | 2021-07-12 17:45 | NUR ---
Patient in room . I have received report from karyna,cathode builder rn and manuelitoshort stay rn and had the opportunity to ask questions and assume patient care.
--- NOTE | 2021-07-12 17:55 | NUR ---
received pt into room 3012 a, bedside report with karynacheesemaking laborer rn.Right groin site clean,dry intact,right pedal pulses weak, but palpable, pt and aware need to lie flat until 930 pm, placed urinal. NS @100 resumed to left ac,site clear. Neuro check with no deficits noted, pt a and o x4 ,no weaknesses to extremities noted ,VSS. ,O2 @ 2l/n/c pt c/o pain 5/10 to right groin ,aware of norco availability, orders faxed to pharmacy, report given to mukesh phillips
[2021-07-12 18:00] VITALS: BP_SYST 128; BP_SYST 134; BP_DIAS 74; BP_DIAS 76
[2021-07-12] MEDS ORDERED: hydrALAZINE 20mg/ml inj. IV PRN (18:10)
[2021-07-12] MEDS ORDERED: HYDROcodone/acetaminophen 5mg/325mg tablet PO PRN (18:10)
[2021-07-12] MEDS ORDERED: pseudoephedrine 30mg tablet PO PRN (18:10)
[2021-07-12] MEDS ORDERED: OXAZEpam 15mg capsule PO PRN (18:10)
[2021-07-12] MEDS: normal saline 1000ml 1,000 ML IV SCH ×2 (18:10→22:35)
[2021-07-12] MEDS ORDERED: DOPamine 400mg/D5W 250ml 250 ML IV SCH (18:10)
[2021-07-12] MEDS: HYDROcodone/acetaminophen 10/325mg tab PO PRN ×2 (18:53→23:11)
[2021-07-12] MEDS ORDERED: DOPamine 400mg/D5W 250ml 250 ML IV PRN (21:01)
[2021-07-12 22:00] VITALS: BP 124/70
[2021-07-13 02:00] VITALS: BP 128/75
[2021-07-13] MEDS: HYDROcodone/acetaminophen 10/325mg tab PO PRN (02:55)
[2021-07-13 06:00] VITALS: BP 142/78
--- NOTE | 2021-07-13 06:12 | NUR ---
Problems reprioritized. Patient report given, questions answered & plan of care reviewed with Fabiana, RN.
--- NOTE | 2021-07-13 06:24 | NUR ---
Patient in room PCU 3012. I have received report from Geraldo RN and TYREL Jones and had the opportunity to ask questions and assume patient care.
--- NOTE | 2021-07-13 06:31 | NUR ---
[place] Medication Administration: For this medication-pass time frame, all medication were reviewed, dispensed, administered and documented per hospital policy by TYREL Jones. [place] documentation: I have reviewed and agree with all interventions, assessments performed and documented by TYREL Jones.
[2021-07-13] MEDS: normal saline 1000ml 1,000 ML IV SCH ×2 (06:57→07:00)
[2021-07-13 07:56] LABS: CHOL/HDL RATIO 2.1 (0.00-4.99); CHOLESTEROL 121 MG/DL (0-200); HDL CHOLESTEROL 59 MG/DL (35-60); LDL CHOLESTEROL 47 MG/DL (50-100); TRIGLYCERIDES 36 MG/DL (20-135)
[2021-07-13 08:22] LABS: BASOPHILS % (AUTO) 0.6 % (0-1); EOSINOPHILS # (AUTO) 0.1 X10'3 (0-0.9); EOSINOPHILS % (AUTO) 1.6 % (0-6); HEMATOCRIT 37.8 % (42.0-52.0); HEMOGLOBIN 12.6 g/dl (14.0-17.9); LYMPHOCYTES # (AUTO) 0.8 X10'3 (1.1-4.8); LYMPHOCYTES % (AUTO) 10.8 % (21-51); MEAN CORPUSCULAR HEMOGLOBIN 32.2 PG (27.0-31.0); MEAN CORPUSCULAR HGB CONC 33.4 g/dL (33.0-36.5); MEAN CORPUSCULAR VOLUME 96.6 FL (78-98); MEAN PLATELET VOLUME 7.8 FL (7.4-10.4); MONOCYTES # (AUTO) 0.5 X10'3 (0-0.9); MONOCYTES % (AUTO) 7.4 % (2-12); NEUTROPHILS # (AUTO) 5.8 X10'3 (1.8-7.7); NEUTROPHILS % (AUTO) 79.6 % (42-75); PLATELET COUNT 228 X10'3 (140-440); RED BLOOD COUNT 3.92 X10'6 (4.70-6.10); RED CELL DISTRIBUTION WIDTH 14.5 % (11.5-14.5); WHITE BLOOD COUNT 7.3 X10'3 (4.5-11.0)
[2021-07-13 08:27] LABS: ALANINE AMINOTRANSFERASE 23 U/L (12-78); ALBUMIN 3.4 G/DL (3.4-5.0); ALBUMIN/GLOBULIN RATIO 1.4 (1.1-1.5); ALKALINE PHOSPHATASE 70 IU/L (46-116); ANION GAP 11 (8-16); ASPARTATE AMINO TRANSFERASE 24 U/L (10-37); BILIRUBIN,TOTAL 0.6 MG/DL (0.1-1.0); BLOOD UREA NITROGEN 14 MG/DL (7-18); CALCIUM 8.4 MG/DL (8.5-10.1); CHLORIDE 104 MMOL/L (99-107); CREATININE 0.61 MG/DL (0.60-1.10); GLUCOSE 73 MG/DL (70-104); POTASSIUM 4.3 MMOL/L (3.5-5.1); SODIUM 139 MMOL/L (135-145); TOTAL PROTEIN 5.8 G/DL (6.4-8.2); eGFR > 90 ML/MIN
--- NOTE | 2021-07-13 10:50 | NUR ---
Patient stable for discharge per MD orders. PIV discontinued intact. Telemetry monitoring equipment removed and returned to telemetry office. All discharge instructions reviewed with patient and spouse, who were given the opportunity to ask questions and indicated good understanding of discharge instructions. 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
== END 2021-07-13 10:45 | disposition home or self-care (01) | DRG 35 ==
LOC: SSTAY O 13:49 → PCU 3S 18:00 → SSTAY O 18:07 → PCU 3S 07-13 10:45 → SSTAY O 07-13 10:45
PROVIDERS: ADMIT Internal Medicine Interventional Cardiology; ATTEND Internal Medicine Interventional Cardiology
PROC: 037K3DZ Dilation of Right Internal Carotid Artery with Intraluminal Device, Percutaneous Approach (ICD-10-PCS; principal; 2021-07-12)
PROC: B3101ZZ Fluoroscopy of Thoracic Aorta using Low Osmolar Contrast (ICD-10-PCS; 2021-07-12)
PROC: B3131ZZ Fluoroscopy of Right Common Carotid Artery using Low Osmolar Contrast (ICD-10-PCS; 2021-07-12)
PROC: B3161ZZ Fluoroscopy of Right Internal Carotid Artery using Low Osmolar Contrast (ICD-10-PCS; 2021-07-12)
PROC: B3191ZZ Fluoroscopy of Right External Carotid Artery using Low Osmolar Contrast (ICD-10-PCS; 2021-07-12)
DX: I65.23 Occlusion and stenosis of bilateral carotid arteries (principal); I25.810 Atherosclerosis of coronary artery bypass graft(s) without angina pectoris; I10 Essential (primary) hypertension; J44.9 Chronic obstructive pulmonary disease, unspecified; I48.0 Paroxysmal atrial fibrillation; I27.20 Pulmonary hypertension, unspecified; E04.1 Nontoxic single thyroid nodule; I70.0 Atherosclerosis of aorta; E78.49 Other hyperlipidemia; C67.9 Malignant neoplasm of bladder, unspecified; E78.00 Pure hypercholesterolemia, unspecified; Z95.1 Presence of aortocoronary bypass graft; Z87.891 Personal history of nicotine dependence; Z85.46 Personal history of malignant neoplasm of prostate
CPT/HCPCS: 36415; 37215; 80053; 80061; 85025; 93005; C1725; C1751; C1760; C1769; C1876; C1884; C1887; C1894; G0378; J0461; J1265; J1644; J2001; J2370; J7030; Q9967